=== PATIENT | female | born 1955 | race Caucasian/White ===

== ENCOUNTER → 2017-09-06 | Outpatient (CLI) | payer MEDICARE, OTHER ==
[~2017-09-06] MED LIST: ACET500 PO; ASPI81EC PO; BUME1 PO; FURO40 PO; GABA400 PO; LEVSOD25 PO; LIOT5 PO; METPHE20 PO; PARO20 PO; PAROXETINE PO; POTCHL20ER PO; SIMV40 PO; TRAZ100 PO
== END | disposition home or self-care (01) ==
LOC: LAB 18:49 → LAB SHORT 18:49
DX: B37.41 Candidal cystitis and urethritis (principal)
CPT/HCPCS: 87077; 87086; 87186

== ENCOUNTER → 2017-11-06 | Outpatient (CLI) | payer MEDICARE | LOC: LAB SHORT 19:07 → LAB EV 19:07 | DX: N39.0 Urinary tract infection, site not specified (principal) | CPT/HCPCS: 87077; 87086; 87186 ==

== ENCOUNTER → 2020-08-24 | Outpatient (CLI) | payer MEDICARE | LOC: LAB EV 19:07 → LAB SHORT 19:07 | DX: N39.0 Urinary tract infection, site not specified (principal) | CPT/HCPCS: 87086 ==

== ENCOUNTER → 2021-07-19 | Outpatient (CLI) | payer MEDICARE ==
[2021-07-19 15:13] LABS: BASOPHILS ABSOLUTE AUTO 0.03 K/mm3 (0.00-0.23); BASOPHILS PERCENT AUTO 1 % (0-2); EOSINOPHILS ABSOLUTE AUTO 0.13 K/mm3 (0.00-0.68); EOSINOPHILS PERCENT AUTO 2 % (0-6); Hematocrit 45.1 % (33.0-51.0); Hemoglobin 14.7 g/dL (11.5-16.0); IMMATURE GRAN ABSOLUTE AUTO 0.01 K/mm3 (0.00-0.10); IMMATURE GRAN PERCENT AUTO 0 % (0-1); LYMPHOCYTES ABSOLUTE AUTO 1.72 K/mm3 (0.84-5.20); LYMPHOCYTES PERCENT AUTO 26 % (21-46); MONOCYTES ABSOLUTE AUTO 0.46 K/mm3 (0.16-1.47); MONOCYTES PERCENT AUTO 7 % (4-13); Mean Corpuscular HGB 31.5 pg (26.0-34.0); Mean Corpuscular HGB Conc 32.6 g/dL (31.5-36.5); Mean Corpuscular Volume 97 fL (80-100); Mean Platelet Volume 9.4 fL (9.1-12.4); NEUTROPHILS ABSOLUTE AUTO 4.29 K/mm3 (1.96-9.15); NEUTROPHILS PERCENT AUTO 65 % (41-73); Platelet Count 163 K/mm3 (150-400); RDW Coefficient Variation 13.2 % (11.7-14.2); RDW Standard Deviation 46.8 fL (35.1-46.3); Red Blood Cell Count 4.67 M/mm3 (3.80-5.20); White Blood Cell Count 6.64 K/mm3 (4.00-11.30)
[2021-07-19 15:27] LABS: Alanine Aminotransfer (ALT/SGP 27 U/L (12-78); Albumin, Blood 3.4 g/dL (3.4-5.0); Albumin/Globulin Ratio 0.8 (0.8-1.8); Alk Phos 91 U/L (50-136); Anion Gap 4 mmol/L (6-16); Aspartate Aminotrans (AST/SGOT 17 U/L (12-37); Bilirubin, Total 0.6 mg/dL (0.1-1.0); Blood Urea Nitrogen 17 mg/dL (8-24); CO2, Blood 28 mmol/L (21-32); Calcium, Blood 9.5 mg/dL (8.5-10.1); Chloride, Blood 106 mmol/L (98-108); Creatinine, Blood 0.71 mg/dL (0.40-1.00); Glomerular Filtration Rate >60 (60-); Glucose, Blood 108 mg/dL (70-99); Potassium, Blood 4.1 mmol/L (3.5-5.5); Sodium, Blood 138 mmol/L (136-145); Total Protein, Blood 7.4 g/dL (6.4-8.2)
== END | disposition home or self-care (01) ==
LOC: LAB SHORT 13:42 → LAB 13:42
PROVIDERS: Hospitalist
DX: I10 Essential (primary) hypertension (principal)
CPT/HCPCS: 80053; 85025

== ENCOUNTER 2021-12-23 07:38 | Day surgery (SDC) | payer MEDICARE ==
[~2021-12-23] VITALS: Ht 160 cm; Wt 95.3 kg
[2021-12-23] MEDS ORDERED: NORT10 (08:10)
[2021-12-23] MEDS ORDERED: Bisoprolol Fumar5 MG (08:10)
[2021-12-23] MEDS ORDERED: LOSA25 (08:11)
[2021-12-23] MEDS ORDERED: FURO20 (08:11)
[2021-12-23] MEDS ORDERED: VENL25 (08:11)
== END 2021-12-23 09:18 | disposition home or self-care (01) ==
LOC: ORSCSDS 07:38
PROVIDERS: Surgery
PROC: 0DBK8ZX Excision of Ascending Colon, Via Natural or Artificial Opening Endoscopic, Diagnostic (ICD-10-PCS; principal; 2021-12-23 08:45)
PROC: 0DBP8ZX Excision of Rectum, Via Natural or Artificial Opening Endoscopic, Diagnostic (ICD-10-PCS; principal; 2021-12-23 08:45)
DX: Z12.11 Encounter for screening for malignant neoplasm of colon (principal); D12.2 Benign neoplasm of ascending colon; K62.1 Rectal polyp; K59.09 Other constipation; K52.9 Noninfective gastroenteritis and colitis, unspecified; J44.9 Chronic obstructive pulmonary disease, unspecified; I10 Essential (primary) hypertension; E78.5 Hyperlipidemia, unspecified; R00.0 Tachycardia, unspecified; F17.210 Nicotine dependence, cigarettes, uncomplicated; E66.9 Obesity, unspecified; Z68.37 Body mass index [BMI] 37.0-37.9, adult; Z79.82 Long term (current) use of aspirin; Z79.899 Other long term (current) drug therapy
CPT/HCPCS: 88305; J2704

== ENCOUNTER → 2022-06-30 | Outpatient (CLI) | payer MEDICARE ==
[~2022-06-30] MED LIST changes: +Bisoprolol Fumar5 MG; +FURO20; +LOSA25; +NORT10; +VENL25
[2022-06-30 14:28] LABS: Influenza B, PCR NEGATIVE (NEGATIVE); Resp Syncytial Virus, PCR NEGATIVE (NEGATIVE); SARS-Cov-2 (COVID-19) PCR, MMC NEGATIVE (NEGATIVE)
[2022-06-30 14:30] LABS: Influenza A, PCR POSITIVE (NEGATIVE)
== END | disposition home or self-care (01) ==
LOC: LAB SHORT 09:45 → LAB 09:45
PROVIDERS: Hospitalist
DX: Z20.822 Contact with and (suspected) exposure to COVID-19 (principal); R05.9 Cough, unspecified
CPT/HCPCS: 0241U

== ENCOUNTER → 2023-04-17 | Outpatient (CLI) | payer MEDICARE | LOC: LAB SHORT 18:31 → LAB 18:31 | DX: N30.01 Acute cystitis with hematuria (principal) | CPT/HCPCS: 87077; 87086; 87186 ==

== ENCOUNTER 2024-08-01 23:16 | Emergency (ER) | payer OTHER ==
[~2024-08-01] VITALS: Ht 160 cm; Wt 83.9 kg
[~2024-08-01 23:16] MED LIST changes: -PLAVIX75 MG PO; -ROSUVASTATIN CA20 MG PO
[2024-08-02 00:01] LABS: Source, Urine Clean Catch
[2024-08-02 00:22] LABS: Blood, Urine 5+ (Neg); Glucose Qualitative, Urine Neg (Neg); Ketones, Urine Neg (Neg); Leukocyte Esterase, Urine 3+ (Neg); Nitrite, Urine Pos (Neg); Protein, Urine 3+ (Neg); Specific Gravity, Urine 1.015 (1.003-1.022); Urobilinogen, Urine 2+ (Normal)
[2024-08-02 00:40] LABS: Appearance, Urine Turbid (Clear); Bilirubin, Urine 2+ (Neg); Color, Urine Yellow (P-Yellow)
[2024-08-02 00:44] LABS: Bacteria Many /hpf; Granular Casts 0-2 /lpf (0); Squamous Epithelial Cells Few /hpf (Few); White Blood Cells, Urine TNTC /hpf (0-5)
[2024-08-02 03:05] LABS: BASOPHILS ABSOLUTE AUTO 0.04 K/mm3 (0.00-0.23); BASOPHILS PERCENT AUTO 0 % (0-2); EOSINOPHILS ABSOLUTE AUTO 0.03 K/mm3 (0.00-0.68); EOSINOPHILS PERCENT AUTO 0 % (0-6); Hemoglobin 13.5 g/dL (11.5-16.0); IMMATURE GRAN ABSOLUTE AUTO 0.03 K/mm3 (0.00-0.10); IMMATURE GRAN PERCENT AUTO 0 % (0-1); LYMPHOCYTES ABSOLUTE AUTO 0.74 K/mm3 (0.84-5.20); LYMPHOCYTES PERCENT AUTO 7 % (21-46); MONOCYTES ABSOLUTE AUTO 1.01 K/mm3 (0.16-1.47); MONOCYTES PERCENT AUTO 9 % (4-13); Mean Corpuscular HGB 32.4 pg (26.0-34.0); Mean Corpuscular HGB Conc 33.8 g/dL (31.5-36.5); Mean Corpuscular Volume 96 fL (80-100); Mean Platelet Volume 9.5 fL (9.1-12.4); NEUTROPHILS ABSOLUTE AUTO 8.89 K/mm3 (1.96-9.15); NEUTROPHILS PERCENT AUTO 83 % (41-73); Platelet Count 111 K/mm3 (150-400); RDW Coefficient Variation 13.2 % (11.7-14.2); RDW Standard Deviation 46.8 fL (35.1-46.3); Red Blood Cell Count 4.17 M/mm3 (3.80-5.20); White Blood Cell Count 10.74 K/mm3 (4.00-11.30)
[2024-08-02 03:06] LABS: Albumin, Blood 3.2 g/dL (3.4-5.0); Albumin/Globulin Ratio 0.8 (0.8-1.8); Bilirubin, Total 0.7 mg/dL (0.1-1.0); Bun/Creatinine Ratio 19.1 (12.0-20.0); Calcium, Blood 9.1 mg/dL (8.5-10.1); Creatinine, Blood 1.31 mg/dL (0.40-1.00); Potassium, Blood 3.5 mmol/L (3.5-5.5); Total Protein, Blood 7.2 g/dL (6.4-8.2)
[2024-08-02] MEDS ORDERED: NS 1,000 ML IV SCH ×3 (03:40→07:15)
[2024-08-02] MEDS ORDERED: CefTRIAXone Sodium 1,000 MG in NS 50 ML IV ONE (03:40)
[2024-08-02] MEDS ORDERED: ROSUVASTATIN CA20 MG PO (13:01)
[2024-08-02] MEDS ORDERED: PLAVIX75 MG PO (13:01)
[2024-08-02] MEDS ORDERED: Gabapentin 300 MG Cap PO SCH (13:30)
[2024-08-02] MEDS ORDERED: Nicotine 21 MG PATCH TOP ONE (13:55)
[2024-08-02 16:30] VITALS: BP 135/67
== END 2024-08-02 16:42 | disposition short-term general hospital (02) ==
LOC: ER 23:16
PROVIDERS: Physician Assistant
DX: A41.9 Sepsis, unspecified organism (principal); N13.2 Hydronephrosis with renal and ureteral calculous obstruction; R65.21 Severe sepsis with septic shock; J96.01 Acute respiratory failure with hypoxia; R40.0 Somnolence; Z88.6 Allergy status to analgesic agent; Z88.8 Allergy status to other drugs, medicaments and biological substances; Z79.82 Long term (current) use of aspirin; Z79.899 Other long term (current) drug therapy
CPT/HCPCS: 36415; 74177; 80053; 81001; 83605; 85025; 87077; 87086; 87186; 96365-59; 99285-25; A9270; J0696; J7030; Q9967

== ENCOUNTER → 2024-08-01 | Outpatient (CLI) | payer OTHER ==
[~2024-08-01] MED LIST changes: -Bisoprolol Fumar5 MG; +Bisoprolol Fumar5 MG PO; -NORT10; +NORT10 PO; +PLAVIX75 MG PO; +ROSUVASTATIN CA20 MG PO; -VENL25; +VENL25 PO
== END ==
LOC: LAB 14:13 → LAB SHORT 14:13
DX: N39.0 Urinary tract infection, site not specified (principal)
CPT/HCPCS: 87077; 87086; 87186

== ENCOUNTER → 2024-08-13 | Outpatient (CLI) | payer OTHER ==
[~2024-08-13] MED LIST changes: +PLAVIX75 MG PO; +ROSUVASTATIN CA20 MG PO
[2024-08-13 13:21] LABS: BASOPHILS ABSOLUTE AUTO 0.04 K/mm3 (0.00-0.23); BASOPHILS PERCENT AUTO 0 % (0-2); EOSINOPHILS ABSOLUTE AUTO 0.27 K/mm3 (0.00-0.68); EOSINOPHILS PERCENT AUTO 3 % (0-6); Hematocrit 37.7 % (33.0-51.0); IMMATURE GRAN ABSOLUTE AUTO 0.05 K/mm3 (0.00-0.10); IMMATURE GRAN PERCENT AUTO 1 % (0-1); LYMPHOCYTES ABSOLUTE AUTO 1.37 K/mm3 (0.84-5.20); LYMPHOCYTES PERCENT AUTO 13 % (21-46); MONOCYTES ABSOLUTE AUTO 0.45 K/mm3 (0.16-1.47); MONOCYTES PERCENT AUTO 4 % (4-13); Mean Corpuscular HGB 31.4 pg (26.0-34.0); Mean Corpuscular HGB Conc 31.8 g/dL (31.5-36.5); Mean Corpuscular Volume 99 fL (80-100); Mean Platelet Volume 8.7 fL (9.1-12.4); NEUTROPHILS ABSOLUTE AUTO 8.22 K/mm3 (1.96-9.15); NEUTROPHILS PERCENT AUTO 79 % (41-73); Platelet Count 222 K/mm3 (150-400); RDW Coefficient Variation 13.3 % (11.7-14.2); RDW Standard Deviation 46.9 fL (35.1-46.3); Red Blood Cell Count 3.82 M/mm3 (3.80-5.20)
[2024-08-13 13:33] LABS: Albumin, Blood 3.8 g/dL (3.4-5.0); Bilirubin, Total 0.4 mg/dL (0.1-1.0); Bun/Creatinine Ratio 23.5 (12.0-20.0); Creatinine, Blood 1.19 mg/dL (0.40-1.00); Globulin, Blood 3.7 g/dL (2.2-4.0); Potassium, Blood 3.9 mmol/L (3.5-5.5); Total Protein, Blood 7.5 g/dL (6.4-8.2)
== END | disposition home or self-care (01) ==
LOC: LAB SHORT 13:15 → LAB 13:15
PROVIDERS: Physician Assistant
DX: M54.50 Low back pain, unspecified (principal); Z86.19 Personal history of other infectious and parasitic diseases; R82.81 Pyuria
CPT/HCPCS: 80053; 83605; 85025; 87040; 87086

== ENCOUNTER 2024-09-03 03:03 | Inpatient (IN) | payer OTHER ==
[~2024-09-03] VITALS: Ht 162.6 cm; Wt 88.5 kg
[~2024-09-03 03:03] MED LIST changes: +ASPI81CH PO; -ASPI81EC PO; +Bisoprolol Fuma10 MG PO; -Bisoprolol Fumar5 MG PO; -FURO20; +FURO20 PO; +GABA300 PO; -GABA400 PO; -LOSA25; +LOSA25 PO; -NORT10 PO; +NORT75 PO; -VENL25 PO; +VENL75ER PO
[2024-09-03] MEDS ORDERED: Ipratropium/Albuterol SulF 2.5-0.5MG/3 ML Amp INH ONE (03:20)
[2024-09-03] MEDS ORDERED: Ketorolac Tromethamine 15mg Vial IV ONE (03:25)
[2024-09-03 03:29] LABS: Source, Urine Clean Catch
[2024-09-03 03:30] LABS: Hematocrit 31.2 % (33.0-51.0); Hemoglobin 9.8 g/dL (11.5-16.0); Mean Corpuscular HGB 31.5 pg (26.0-34.0); Mean Corpuscular HGB Conc 31.4 g/dL (31.5-36.5); Mean Corpuscular Volume 100 fL (80-100); Mean Platelet Volume 9.1 fL (9.1-12.4); Platelet Count 118 K/mm3 (150-400); RDW Coefficient Variation 13.7 % (11.7-14.2); RDW Standard Deviation 50.1 fL (35.1-46.3); Red Blood Cell Count 3.11 M/mm3 (3.80-5.20); White Blood Cell Count 5.98 K/mm3 (4.00-11.30)
[2024-09-03 03:31] LABS: Base Excess Venous 2.1 mmol/L; Bicarbonate Venous 25.5 mmol/L (24.0-30.0); PCO2 Venous 43.9 mmHg (38-42)
[2024-09-03 03:32] LABS: Bilirubin, Urine Neg (Neg); Blood, Urine 5+ (Neg); Glucose Qualitative, Urine Neg (Neg); Ketones, Urine Neg (Neg); Leukocyte Esterase, Urine 3+ (Neg); Nitrite, Urine Neg (Neg); Protein, Urine 2+ (Neg); Urobilinogen, Urine NORM (Normal); pH, Urine 6.5 (5.0-8.0)
[2024-09-03 03:35] LABS: Appearance, Urine Hazy (Clear); Color, Urine Yellow (P-Yellow)
[2024-09-03] MEDS ORDERED: CefTRIAXone Sodium 1,000 MG in NS 100 ML IV ONE (03:40)
[2024-09-03] MEDS ORDERED: Azithromycin 250 MG Tab PO ONE (03:45)
[2024-09-03 03:49] LABS: Albumin, Blood 3.1 g/dL (3.4-5.0); Albumin/Globulin Ratio 0.8 (0.8-1.8); Bilirubin, Total 0.5 mg/dL (0.1-1.0); Calcium, Blood 8.7 mg/dL (8.5-10.1); Creatinine, Blood 0.77 mg/dL (0.40-1.00); Globulin, Blood 3.8 g/dL (2.2-4.0); Magnesium, Blood 1.7 mg/dL (1.6-2.4); Potassium, Blood 4.3 mmol/L (3.5-5.5); Total Protein, Blood 6.9 g/dL (6.4-8.2)
[2024-09-03 03:54] LABS: Bacteria Mod /hpf; Red Blood Cells, Urine TNTC /hpf (0-2); Squamous Epithelial Cells Not Seen /hpf (Few)
[2024-09-03 03:57] LABS: BAND PERCENT MAN 20 % (0-8); BASOPHILS PERCENT MAN 0 % (0-2); EOSINOPHILS PERCENT MAN 0 % (0-6); LYMPHOCYTES ABSOLUTE MAN 0.17 K/mm3 (0.84-5.20); LYMPHOCYTES PERCENT MAN 3 % (21-46); MONOCYTES ABSOLUTE MAN 0.05 K/mm3 (0.16-1.47); MONOCYTES PERCENT MAN 1 % (4-13); NEUTROPHILS ABSOLUTE MAN 5.74 K/mm3 (1.96-9.15); SEG NEUTROPHILS PERCENT MAN 76 % (41-73); TOTAL CELLS COUNTED 100
[2024-09-03] MEDS ORDERED: FLU VACC TS2024-25(6MOS UP)/PF 45 MCG/0.5 ML SYRINGE IM ONE (04:25)
[2024-09-03] MEDS ORDERED: Acetaminophen 325 MG TABLET PO PRN (04:25)
[2024-09-03 05:18] LABS: BASOPHILS ABSOLUTE AUTO 0.03 K/mm3 (0.00-0.23); BASOPHILS PERCENT AUTO 0 % (0-2); EOSINOPHILS ABSOLUTE AUTO 0.03 K/mm3 (0.00-0.68); EOSINOPHILS PERCENT AUTO 0 % (0-6); Hematocrit 27.5 % (33.0-51.0); Hemoglobin 8.6 g/dL (11.5-16.0); IMMATURE GRAN ABSOLUTE AUTO 0.03 K/mm3 (0.00-0.10); IMMATURE GRAN PERCENT AUTO 0 % (0-1); LYMPHOCYTES ABSOLUTE AUTO 0.28 K/mm3 (0.84-5.20); LYMPHOCYTES PERCENT AUTO 3 % (21-46); MONOCYTES ABSOLUTE AUTO 0.32 K/mm3 (0.16-1.47); MONOCYTES PERCENT AUTO 4 % (4-13); Mean Corpuscular HGB Conc 31.3 g/dL (31.5-36.5); Mean Corpuscular Volume 99 fL (80-100); NEUTROPHILS ABSOLUTE AUTO 8.52 K/mm3 (1.96-9.15); NEUTROPHILS PERCENT AUTO 93 % (41-73); NRBC ABSOLUTE 0.02 K/mm3 (0.00-0.02); NRBC Auto 0.2 /100 WBC (0.0-0.2); Platelet Count 110 K/mm3 (150-400); RDW Coefficient Variation 13.5 % (11.7-14.2); RDW Standard Deviation 49.1 fL (35.1-46.3); Red Blood Cell Count 2.77 M/mm3 (3.80-5.20); White Blood Cell Count 9.21 K/mm3 (4.00-11.30)
[2024-09-03 05:44] LABS: Albumin, Blood 2.8 g/dL (3.4-5.0); Albumin/Globulin Ratio 0.9 (0.8-1.8); Bilirubin, Total 0.4 mg/dL (0.1-1.0); Bun/Creatinine Ratio 21.6 (12.0-20.0); Calcium, Blood 8.5 mg/dL (8.5-10.1); Creatinine, Blood 0.79 mg/dL (0.40-1.00); Globulin, Blood 3.2 g/dL (2.2-4.0); Magnesium, Blood 1.7 mg/dL (1.6-2.4); Potassium, Blood 3.6 mmol/L (3.5-5.5)
[2024-09-03] MEDS ORDERED: Nicotine 14 MG PATCH TOP SCH (09:00)
[2024-09-03] MEDS ORDERED: Furosemide 40 MG Tab PO SCH (09:00)
[2024-09-03] MEDS ORDERED: Losartan Potassium 25 MG Tab PO SCH (09:00)
[2024-09-03] MEDS ORDERED: Metoprolol Succinate 50 MG TABCR PO SCH (09:00)
[2024-09-03] MEDS ORDERED: Aspirin 81 MG Chew PO SCH (09:00)
[2024-09-03] MEDS ORDERED: Atorvastatin 40 MG Tab PO SCH (09:00)
[2024-09-03] MEDS ORDERED: Clopidogrel Bisulfate 75 MG Tab PO SCH (09:00)
[2024-09-03] MEDS ORDERED: Lactobacil 2-S.Thermo-Bifido 1 1 Cap PO SCH (09:00)
[2024-09-03 09:01] LABS: Base Excess Venous 5.2 mmol/L; Bicarbonate Venous 28.4 mmol/L (24.0-30.0); PCO2 Venous 49.2 mmHg (38-42)
[2024-09-03] MEDS ORDERED: NS 500 ML IV ONE (10:10)
[2024-09-03 11:59] LABS: CORONAVIRUS COVID-19 AG Negative (NEGATIVE); INFLUENZA A AG Negative (NEGATIVE); INFLUENZA B AG Negative (NEGATIVE)
[2024-09-03 14:10] VITALS: BP 126/71
[2024-09-03 20:22] VITALS: BP 124/54
[2024-09-03] MEDS ORDERED: NS 250 ML IV PRN (20:50)
[2024-09-03] MEDS ORDERED: Venlafaxine HCl 25 MG Tab PO SCH (21:00)
[2024-09-03] MEDS ORDERED: Azithromycin 500 MG in NS 250 ML IV SCH (21:00)
[2024-09-03] MEDS ORDERED: Gabapentin 300 MG Cap PO SCH (21:00)
[2024-09-03] MEDS ORDERED: CefTRIAXone Sodium 1,000 MG in NS 100 ML IV SCH (21:00)
[2024-09-03] MEDS ORDERED: Nortriptyline HCl 10 MG Cap PO SCH (21:00)
[2024-09-04 02:40] VITALS: BP 133/68
--- NOTE | 2024-09-04 05:07 | NUR ---
SHIFT SUMMARY: PT AOX4 PLEASANT MOOD AND AFFECT. TOLERATING MEDICATION WELL AND ABLE TO MAKE NEEDS KNOWN. STATES THAT SHE IS HAVING A LOT OF RELIEFE WITH THE CATHETER IN PLACE AND THAT IT IS RELIEVING A LOT OF THE DISCOMFORT SHE WAS FEELING AT BASELINE. PT STATES SOME DISCOMFORT IN HER LEGS AND BACK THAT SITTING UP AT THE SIDE OF THE BED SEEMS TO RELIEVE. DENIEST DISCOMFORT OR ABNORMAL PAIN FROM BASELINE AT THIS TIME. NO ACUTE EVENTS OVERNIGHT. PT IN BED RESTING, BED IN LOWEST POSITION AND CALL LIGHT IN REACH. CONTIUNING CARE.
[2024-09-04 05:58] LABS: Hematocrit 28.9 % (33.0-51.0); Mean Corpuscular HGB 31.6 pg (26.0-34.0); Mean Corpuscular HGB Conc 31.1 g/dL (31.5-36.5); Mean Corpuscular Volume 101 fL (80-100); Mean Platelet Volume 9.4 fL (9.1-12.4); Platelet Count 132 K/mm3 (150-400); RDW Standard Deviation 51.8 fL (35.1-46.3); Red Blood Cell Count 2.85 M/mm3 (3.80-5.20); White Blood Cell Count 9.66 K/mm3 (4.00-11.30)
[2024-09-04 06:07] LABS: Bun/Creatinine Ratio 26.2 (12.0-20.0); Calcium, Blood 8.2 mg/dL (8.5-10.1); Creatinine, Blood 0.61 mg/dL (0.40-1.00); Potassium, Blood 3.8 mmol/L (3.5-5.5)
[2024-09-04 07:43] VITALS: BP 148/76
[2024-09-04] MEDS ORDERED: Enoxaparin 40 MG/0.4 ML SYR SC SCH (09:00)
--- NOTE | 2024-09-04 10:48 | NUR ---
PATIENT GAVE VERBAL PERMISSION TO WORK WITH STUDENT NURSE.
[2024-09-04 14:24] VITALS: BP 140/74
--- NOTE | 2024-09-04 16:51 | NUR ---
REVIEWED SHIFT ASSESSMENT CHARTED BY MIGUEL, STUDENT NURSE AND I AGREE WITH HER DOCUMENTATION FOR THIS PATIENT.
--- NOTE | 2024-09-04 17:04 | NUR ---
PATIENT A/OX4, UP WITH SBA. GOLDBERG TO GRAVITY WITH MARCELA/CLOUDY OUTPUT. PATIENT NOW ON RA MAINTAINING SATS >90%. SKIN INTACT. DENIES ANY PAIN OR DISCOMFORT. NO NEW CONCERNS THIS SHIFT. PATIENT PLEASANT AND COOPERATIVE AND ABLE TO MAKE NEEDS KNOWN.
[2024-09-04] MEDS ORDERED: Melatonin 5 MG Tablet PO SCH (21:00)
[2024-09-04] MEDS ORDERED: Gabapentin 300 MG Cap PO SCH (21:00)
[2024-09-04 21:58] VITALS: BP 151/76
[2024-09-05 04:31] VITALS: BP 161/78
--- NOTE | 2024-09-05 05:55 | NUR ---
SHIFT SUMMARY PT LYING IN BED RESTING. SPOUSE AT BEDSIDE THROUGH THE NIGHT. PT STATED SHE WOULD LIKE TO GO HOME WITH THE CATHETER IN PLACE, D/T CHRONIC RETENTION AND CURRENT KIDNEY STONE. EDUCATED PT AND SPOUSE ON IMPORTANCE OF KEEPING CATHETER INSERTION AREA CLEANED. PT AND SOUSE EXPRESSED UNDERSTANDING. APPROX 0530, PT HAD EXPRESSED CONCERNS OF PAIN WITH GOLDBERG. CATHETER APPEARED TO HAVE DISPLACED. CATHETER TUBING CLEANED, BALLOON DEFLATED, CATHETER ADVANCED, BALLOON REINFLATED, AND INSERTED CATHER BACK IN GOLDBERG SECUREMENT DEVICE. PT STATED SHE THOUGHT IT FELF BETTER. WILL CONTINUE TO MONITOR AND RELAY TO DAY SHIFT.
[2024-09-05] MEDS ORDERED: Gabapentin 300 MG Cap PO SCH (06:00)
[2024-09-05 06:11] LABS: Bun/Creatinine Ratio 16.3 (12.0-20.0); Calcium, Blood 8.5 mg/dL (8.5-10.1); Creatinine, Blood 0.55 mg/dL (0.40-1.00); Potassium, Blood 3.9 mmol/L (3.5-5.5)
[2024-09-05 08:01] VITALS: BP 157/93
[2024-09-05] MEDS ORDERED: PROAIR RESPICL90 MCG INH (11:54)
[2024-09-05] MEDS ORDERED: GABA300 PO (13:28)
[2024-09-05] MEDS ORDERED: CEPH500 PO (15:15)
[2024-09-05] MEDS ORDERED: TAMS.4ER PO (15:43)
--- NOTE | 2024-09-05 15:44 | NUR ---
PT DISCHARGED AT 1530 NO DISTRESS NOTED. PT DOING WELL ON RA AND INDEPENDENT IN ROOM. PT HAS SIGNIFICANT OTHER TO TRANSPORT HOME. PT HAD PACKET REVIEWED AND EDUCATIONAL MATERIAL SENT. NO DISTRESS NOTED AND PERSONAL BELONGINGS TAKEN WITH PT.
== END 2024-09-05 15:48 | disposition home or self-care (01) | DRG 871 ==
LOC: ER 03:03 → MEDS 04:31 → ERHOLD 04:31 → MEDS 13:58
PROVIDERS: Internal Medicine; Student in an Organized Health Care Education/Training Program; ADMIT Student in an Organized Health Care Education/Training Program
DX: A41.9 Sepsis, unspecified organism (principal); J18.9 Pneumonia, unspecified organism; J96.01 Acute respiratory failure with hypoxia; J96.02 Acute respiratory failure with hypercapnia; I50.32 Chronic diastolic (congestive) heart failure; E87.20 Acidosis, unspecified; N39.0 Urinary tract infection, site not specified; I47.19 Other supraventricular tachycardia; I08.1 Rheumatic disorders of both mitral and tricuspid valves; G47.00 Insomnia, unspecified; F17.210 Nicotine dependence, cigarettes, uncomplicated; R65.20 Severe sepsis without septic shock; R33.9 Retention of urine, unspecified; Z87.442 Personal history of urinary calculi; I27.20 Pulmonary hypertension, unspecified; I11.0 Hypertensive heart disease with heart failure; E78.5 Hyperlipidemia, unspecified; F41.9 Anxiety disorder, unspecified; Z98.1 Arthrodesis status; Z90.710 Acquired absence of both cervix and uterus; Z90.49 Acquired absence of other specified parts of digestive tract; Z90.89 Acquired absence of other organs; Z98.890 Other specified postprocedural states; Z88.8 Allergy status to other drugs, medicaments and biological substances; Z79.02 Long term (current) use of antithrombotics/antiplatelets; Z79.899 Other long term (current) drug therapy; Z99.81 Dependence on supplemental oxygen
CPT/HCPCS: 36415; 51702; 71045; 80048; 80053; 81001; 82803; 83605; 83735; 83880; 84145; 84484; 85025; 85027; 87070; 87077; 87086; 87186; 87205; 87428-QW; 93005; 93010; 94640; 94664; 94760; 94762; 96365-59; 96375-59; 99285-25; A9270; J0456; J0696; J1650; J1885; J7030; J7050

== ENCOUNTER → 2024-10-15 | Outpatient (CLI) | payer OTHER ==
[~2024-10-15] MED LIST changes: +CEPH500 PO; +PROAIR RESPICL90 MCG INH; +TAMS.4ER PO
[2024-10-15 11:04] LABS: BASOPHILS ABSOLUTE AUTO 0.02 K/mm3 (0.00-0.23); BASOPHILS PERCENT AUTO 0 % (0-2); EOSINOPHILS ABSOLUTE AUTO 0.17 K/mm3 (0.00-0.68); EOSINOPHILS PERCENT AUTO 4 % (0-6); Hematocrit 29.8 % (33.0-51.0); Hemoglobin 8.9 g/dL (11.5-16.0); IMMATURE GRAN ABSOLUTE AUTO 0.01 K/mm3 (0.00-0.10); IMMATURE GRAN PERCENT AUTO 0 % (0-1); LYMPHOCYTES ABSOLUTE AUTO 0.83 K/mm3 (0.84-5.20); LYMPHOCYTES PERCENT AUTO 17 % (21-46); MONOCYTES ABSOLUTE AUTO 0.46 K/mm3 (0.16-1.47); MONOCYTES PERCENT AUTO 10 % (4-13); Mean Corpuscular HGB 25.6 pg (26.0-34.0); Mean Corpuscular HGB Conc 29.9 g/dL (31.5-36.5); Mean Corpuscular Volume 86 fL (80-100); Mean Platelet Volume 9.5 fL (9.1-12.4); NEUTROPHILS ABSOLUTE AUTO 3.36 K/mm3 (1.96-9.15); NEUTROPHILS PERCENT AUTO 69 % (41-73); Platelet Count 172 K/mm3 (150-400); RDW Coefficient Variation 15.8 % (11.7-14.2); RDW Standard Deviation 49.6 fL (35.1-46.3); Red Blood Cell Count 3.47 M/mm3 (3.80-5.20); White Blood Cell Count 4.85 K/mm3 (4.00-11.30)
[2024-10-15 11:15] LABS: Albumin, Blood 3.1 g/dL (3.4-5.0); Albumin/Globulin Ratio 0.7 (0.8-1.8); Bilirubin, Total 0.4 mg/dL (0.1-1.0); Bun/Creatinine Ratio 17.5 (12.0-20.0); Calcium, Blood 8.9 mg/dL (8.5-10.1); Creatinine, Blood 1.26 mg/dL (0.40-1.00); Globulin, Blood 4.4 g/dL (2.2-4.0); Total Protein, Blood 7.5 g/dL (6.4-8.2)
== END ==
LOC: LAB 10:56 → LAB SHORT 10:56
PROVIDERS: Physician Assistant Medical
DX: R53.83 Other fatigue (principal)
CPT/HCPCS: 80053; 83735; 85025

== ENCOUNTER → 2025-02-08 | Outpatient (CLI) | payer OTHER | LOC: LAB SHORT 14:06 → LAB 14:06 | DX: N28.9 Disorder of kidney and ureter, unspecified (principal) | CPT/HCPCS: 87077; 87086; 87186 ==

== ENCOUNTER → 2025-02-08 | Outpatient (CLI) | payer OTHER ==
[2025-02-08 11:03] LABS: BASOPHILS ABSOLUTE AUTO 0.03 K/mm3 (0.00-0.23); BASOPHILS PERCENT AUTO 0 % (0-2); EOSINOPHILS ABSOLUTE AUTO 0.12 K/mm3 (0.00-0.68); EOSINOPHILS PERCENT AUTO 1 % (0-6); Hematocrit 40.1 % (33.0-51.0); Hemoglobin 13.2 g/dL (11.5-16.0); IMMATURE GRAN ABSOLUTE AUTO 0.05 K/mm3 (0.00-0.10); IMMATURE GRAN PERCENT AUTO 1 % (0-1); LYMPHOCYTES ABSOLUTE AUTO 0.60 K/mm3 (0.84-5.20); LYMPHOCYTES PERCENT AUTO 7 % (21-46); MONOCYTES ABSOLUTE AUTO 0.82 K/mm3 (0.16-1.47); MONOCYTES PERCENT AUTO 9 % (4-13); Mean Corpuscular HGB Conc 32.9 g/dL (31.5-36.5); Mean Corpuscular Volume 94 fL (80-100); NEUTROPHILS ABSOLUTE AUTO 7.38 K/mm3 (1.96-9.15); NEUTROPHILS PERCENT AUTO 82 % (41-73); NRBC ABSOLUTE 0.00 K/mm3 (0.00-0.02); NRBC Auto 0.0 /100 WBC (0.0-0.2); Platelet Count 136 K/mm3 (150-400); RDW Coefficient Variation 16.5 % (11.7-14.2); RDW Standard Deviation 56.4 fL (35.1-46.3)
[2025-02-08 11:10] LABS: Alanine Aminotransfer (ALT/SGP 44.0 U/L (12-78); Albumin, Blood 3.0 g/dL (3.4-5.0); Albumin/Globulin Ratio 0.7 (0.8-1.8); Anion Gap 16.0 mmol/L (3-11); Aspartate Aminotrans (AST/SGOT 36.0 U/L (12-37); Bilirubin, Total 0.5 mg/dL (0.1-1.0); Blood Urea Nitrogen 22.0 mg/dL (8-24); CO2, Blood 21.0 mmol/L (21-32); Calcium, Blood 9.1 mg/dL (8.5-10.1); Chloride, Blood 103.0 mmol/L (98-108); Creatinine, Blood 1.09 mg/dL (0.40-1.00); Globulin, Blood 4.6 g/dL (2.2-4.0); Glucose, Blood 120.0 mg/dL (70-99); Magnesium, Blood 1.7 mg/dL (1.6-2.4); Phosphorus, Blood 3.3 mg/dL (2.5-4.9); Potassium, Blood 4.5 mmol/L (3.5-5.5); Sodium, Blood 135.0 mmol/L (136-145); Total Protein, Blood 7.6 g/dL (6.4-8.2)
== END | disposition home or self-care (01) ==
LOC: LAB SHORT 10:55 → LAB 10:55
PROVIDERS: Emergency Medicine
DX: R10.9 Unspecified abdominal pain (principal)
CPT/HCPCS: 80053; 83735; 84100; 85025

== ENCOUNTER → 2025-02-27 | Outpatient (CLI) | payer OTHER ==
[2025-02-27 19:22] LABS: Microalbumin, Urine Quant. 31.9 mg/L (0.000-20.000); Protein, Urine Quantitative 13.8 mg/dL (0.0-11.9)
== END | disposition home or self-care (01) ==
LOC: LAB SHORT 07:00 → LAB 07:00 → LAB FUT 02-19 15:05
PROVIDERS: Internal Medicine Nephrology
DX: N18.30 Chronic kidney disease, stage 3 unspecified (principal); D63.1 Anemia in chronic kidney disease; N25.81 Secondary hyperparathyroidism of renal origin; E55.9 Vitamin D deficiency, unspecified; E78.00 Pure hypercholesterolemia, unspecified; R76.9 Abnormal immunological finding in serum, unspecified; R94.5 Abnormal results of liver function studies; R94.6 Abnormal results of thyroid function studies; D51.8 Other vitamin B12 deficiency anemias; D52.8 Other folate deficiency anemias; D50.9 Iron deficiency anemia, unspecified
CPT/HCPCS: 81050; 82043; 82570; 84156

== ENCOUNTER 2025-07-04 09:44 | Inpatient (IN) | payer OTHER ==
[~2025-07-04] VITALS: Ht 160 cm; Wt 88.2 kg
[2025-07-04] MEDS ORDERED: NS 1,000 ML IV SCH ×3 (11:00→15:00)
[2025-07-04 11:39] LABS: BASOPHILS ABSOLUTE AUTO 0.03 K/mm3 (0.00-0.23); BASOPHILS PERCENT AUTO 0 % (0-2); EOSINOPHILS ABSOLUTE AUTO 0.01 K/mm3 (0.00-0.68); EOSINOPHILS PERCENT AUTO 0 % (0-6); Hematocrit 38.1 % (33.0-51.0); Hemoglobin 12.7 g/dL (11.5-16.0); IMMATURE GRAN ABSOLUTE AUTO 0.05 K/mm3 (0.00-0.10); IMMATURE GRAN PERCENT AUTO 0 % (0-1); LYMPHOCYTES ABSOLUTE AUTO 0.56 K/mm3 (0.84-5.20); LYMPHOCYTES PERCENT AUTO 4 % (21-46); MONOCYTES ABSOLUTE AUTO 0.70 K/mm3 (0.16-1.47); MONOCYTES PERCENT AUTO 6 % (4-13); Mean Corpuscular HGB Conc 33.3 g/dL (31.5-36.5); Mean Corpuscular Volume 97 fL (80-100); NEUTROPHILS ABSOLUTE AUTO 11.26 K/mm3 (1.96-9.15); NEUTROPHILS PERCENT AUTO 89 % (41-73); NRBC ABSOLUTE 0.00 K/mm3 (0.00-0.02); NRBC Auto 0.0 /100 WBC (0.0-0.2); Platelet Count 133 K/mm3 (150-400); RDW Coefficient Variation 13.3 % (11.7-14.2); RDW Standard Deviation 48.1 fL (35.1-46.3)
[2025-07-04 12:26] LABS: Alanine Aminotransfer (ALT/SGP 23.0 U/L (12-78); Albumin, Blood 3.0 g/dL (3.4-5.0); Albumin/Globulin Ratio 0.7 (0.8-1.8); Anion Gap 10.0 mmol/L (3-11); Aspartate Aminotrans (AST/SGOT 21.0 U/L (12-37); Bilirubin, Total 0.6 mg/dL (0.1-1.0); Blood Urea Nitrogen 31.0 mg/dL (8-24); CO2, Blood 22.0 mmol/L (21-32); Calcium, Blood 8.8 mg/dL (8.5-10.1); Chloride, Blood 101.0 mmol/L (98-108); Creatinine, Blood 1.17 mg/dL (0.40-1.00); Globulin, Blood 4.2 g/dL (2.2-4.0); Glucose, Blood 125.0 mg/dL (70-99); Magnesium, Blood 2.2 mg/dL (1.6-2.4); Phosphorus, Blood 1.4 mg/dL (2.5-4.9); Potassium, Blood 4.3 mmol/L (3.5-5.5); Sodium, Blood 129.0 mmol/L (136-145); Total Protein, Blood 7.2 g/dL (6.4-8.2)
[2025-07-04 12:56] LABS: Source, Urine Clean Catch
[2025-07-04 13:01] LABS: Color, Urine Yellow (P-Yellow); Glucose Qualitative, Urine Neg (Neg); Ketones, Urine Neg (Neg); Leukocyte Esterase, Urine 3+ (Neg); Protein, Urine 3+ (Neg); Specific Gravity, Urine 1.010 (1.003-1.022); Urobilinogen, Urine NORM (Normal)
[2025-07-04 13:10] LABS: Bilirubin, Urine 1+ (Neg)
[2025-07-04 13:12] LABS: Red Blood Cells, Urine 0-2 /hpf (0-2)
[2025-07-04] MEDS ORDERED: CefTRIAXone Sodium 1,000 MG in NS 100 ML IV ONE (13:35)
[2025-07-04] MEDS ORDERED: FLU VACC TS2025(65UP)/MF59C/PF 45 MCG/0.5 ML SYRINGE IM SCH (13:45)
--- NOTE | 2025-07-04 18:26 | NUR ---
ASSUMPTION OF CARE AT APPROX 1700 A/O X4, PLEASANT AND COOPERATIVE WITH CARE, ABLE TO COMMUNICATE NEEDS, USES CALL LIGHT APPROPRIATELY, FELL AT HOME TODAY AND HIT HEAD ON THE WALL, PT REPORTS FEELING DIZZY AND WEAK THIS MORNING AFTER SEVERAL DAYS OF N/V/D, DENIES DIZZINESS AT THIS TIME, LIFE PARTNER OJ AT BEDSIDE. SPO2 >92% ON RA, RECENTLY QUIT SMOKING. SINUS TACH, HR 100'S, DENIES CHEST PAIN OR PRESSURE. GOLDBERG CATH W/THERMOMETER PATENT AND DRAINING TO GRAVITY, PT DENIES PAIN OR BURNING AT THE SITE. ORIENTED TO CALL DON'T FALL AND CALL LIGHT.
[2025-07-04 21:49] VITALS: BP 135/59
[2025-07-05] VITALS (8 sets, daily range): BP systolic 104–182; BP diastolic 56–90
[2025-07-05 05:02] LABS: Hematocrit 34.0 % (33.0-51.0); Hemoglobin 11.1 g/dL (11.5-16.0); Mean Corpuscular HGB Conc 32.6 g/dL (31.5-36.5); Mean Corpuscular Volume 97 fL (80-100); NRBC ABSOLUTE 0.00 K/mm3 (0.00-0.02); NRBC Auto 0.0 /100 WBC (0.0-0.2); Platelet Count 104 K/mm3 (150-400); RDW Coefficient Variation 13.6 % (11.7-14.2); RDW Standard Deviation 49.1 fL (35.1-46.3)
[2025-07-05 05:40] LABS: Anion Gap 10.0 mmol/L (3-11); Blood Urea Nitrogen 19.0 mg/dL (8-24); CO2, Blood 20.0 mmol/L (21-32); Calcium, Blood 7.9 mg/dL (8.5-10.1); Chloride, Blood 108.0 mmol/L (98-108); Creatinine, Blood 0.76 mg/dL (0.40-1.00); Glucose, Blood 126.0 mg/dL (70-99); Potassium, Blood 3.7 mmol/L (3.5-5.5); Sodium, Blood 134.0 mmol/L (136-145)
--- NOTE | 2025-07-05 06:30 | NUR ---
SHIFT SUMMARY/ASSUMPTION OF CARE ASSUMED CARE OF PT AT APPROXIMATELY 1900. PTS LIFE PARTNER AT BEDSIDE. PT FEBRILE 102.7 MD COKER NOTIFIED AND ORDER FOR TYLENOL PLACED. FEVER IMPROVED. PT STILL WITH WATERY DIARRHEA. BLOOD CULTURES POSITIVE FOR GRAM NEGATIVE BACCILI. MD COKER NOTIFIED. AOX4. SPO2 >94% ON RA. NO C/O SOB. NO C/O CHEST PAIN OR PRESSURE. PT ABLE TO MAKE ALL NEEDS KNOWN. CALL LIGHT WITHIN REACH AND PT CALLS APPROPRIATELY FOR ASSISTANCE WHEN NEEDED. PT TRANSFERRED WELL TO [facility] [place] WITH 1 PERSON ASSISTANCE WITH LINES. BED IN LOWEST AND LOCKED POSITION.
[2025-07-05] MEDS ORDERED: GABA300 PO (07:45)
[2025-07-05] MEDS ORDERED: Enoxaparin 40 MG/0.4 ML SYR SC SCH (09:00)
[2025-07-05] MEDS ORDERED: CefTRIAXone Sodium 1,000 MG in NS 100 ML IV SCH (09:00)
[2025-07-05] MEDS ORDERED: Albuterol HFA200 ACT/6.7 GM INH INH PRN (09:35)
--- NOTE | 2025-07-05 12:42 | NUR ---
CALLED DR GORDON, RE [facility] 5 BEAT RUN, PT ASYMPTOMATIC. ORDERS FOR MAG LEVEL, OKAY TO ADD TO AM LABS IS CAN. DONE
[2025-07-05] MEDS ORDERED: HydrALAZINE HCl 20 MG / ML 1ML Vial IV PRN (15:45)
--- NOTE | 2025-07-05 15:48 | NUR ---
SPOKE TO DR GARCIA TEMP 101.9, ALSO HTN. PLACED ICE UNDER NECK AND ARMS OVER AN HOUR AGO. MISSED LAST NITE DOSES. TO ADJUST MEDS. PEND ORDERS. CONTINUE WITH ICE AT NECK AND UNDER ARMS.
--- NOTE | 2025-07-05 16:15 | NUR ---
CALLLED DR MARTINO RE BP, AND TEMP. ORDERS FOR BP MEDS CHANGE. CONTINUE ICE.
--- NOTE | 2025-07-05 17:10 | NUR ---
PT QUITE PLEASANT AND COOP TODAY. S/O IN ROOM IN AND OUT. B/P MEDS ADJUSTED TODAY ALONG WITH GABAPENTIN. TEMP CONTINUES. TYLENOL AND ICE TO TREAT. DID DISCUSS WITH DR GORDON. FLUIDS D/C THIS AM. PT STATES PAIN UP JUST A LITTLE THIS AFTERNOON. MED WITH TYLENOL. NO OTHER CONCERNS NOTED TODAY. NO OTHER CONCERNS NOTED. BED IN LOW POSITION, CALL LITE IN REACH, CALLS APPROP
[2025-07-06 03:55] VITALS: BP 155/85
--- NOTE | 2025-07-06 06:03 | NUR ---
SHIFT SUMMARY/ASSUMPTION OF CARE ASSUMED CARE OF PT AT APPROXIMATELY 1900. PTS LIFE PARTNER AND SON AT BEDSIDE. PT WITH LOW FEVER THIS SHIFT <100F. TYLENOL GIVEN TO MAINTAIN LOWER TEMP. PT HAD ONE DIAPHORETIC EPISODE THIS SHIFT. LINENS AND GOWN CHANGED. PT REPORTED FEELING SUBSTANTIALLY BETTER OVERALL WHEN SHE WOKE FOR MORNING VITALS.PT RESTING COMFORTABLY IN BED. VSS. AOX4. ABLE TO MAKE ALL NEEDS KNOWN. CALL LIGHT WITHIN REACH AND PT CALLS APPROPRIATELY FOR ASSISTANCE WHEN NEEDED. BED IN LOWEST AND LOCKED POSITION.
[2025-07-06 07:41] VITALS: BP 159/78
--- NOTE | 2025-07-06 09:35 | NUR ---
AM NOTE: PATIENT ALERT AND ORIENTED X4. DENIES PAIN THIS MORNING. UP WITH SBA. MOVING ALL EXTREMITIES. ON ROOM AIR SATING ABOVE 95%. LUNG SOUNDS CLEAR. DENIES SOB/COUGH. TELE SHOWING SR WITH HR 80'S. DENIES CHEST PAIN/PRESSURE/PALPITATIONS. SCD'S IN PLACE. SC LOVENOX GIVEN THIS AM AND IV ABX INFUSED. TRACE BLE EDEMA NOTED. PPP. BOWEL TONES PRESENT. REPORTED TO HAVE DIARRHEA FROM PRIOR SHIFT. TOLERATING PO DIET WITHOUT ISSUES. APPEATITE RETURNING. ATTENDS IN PLACE. GOLDBERG CATH DRAINING YELLOW URINE TO GRAVITY. CATH CARE COMPLETED THIS AM WITH MORNING ROUNDS. PLAN FOR RENAL ULTRASOUND TODAY. SPOUSE OJ AT BEDSIDE AND UPDATED ON PLAN OF CARE. DR. GAUTAM TO BEDSIDE THIS MORNING AND NICOTINE PATCH SWITCHED TO 14MG. NICOTINE PATCH TO LEFT SHOULDER. CALL LIGHT IN REACH. DENIES NEEDS AT THIS TIME.
[2025-07-06 11:06] VITALS: BP 128/62
[2025-07-06 15:29] VITALS: BP 155/76
--- NOTE | 2025-07-06 15:36 | NUR ---
RENAL ULTRASOUND BEING DONE AT THIS TIME
--- NOTE | 2025-07-06 18:22 | NUR ---
NO ACUTE CHANGES. PATIENT REMAINS ALERT AND ORIENTED. ON ROOM AIR. SR/ST WITH HR 90-100'S. GOLDBERG CATH CONTINUES TO DRAIN CLEAR/YELLOW URINE. SPOUSE OJ AT BEDSIDE THROUGHOUT SHIFT. IV ABX INFUSED. TMAX 100.6, MEDICATED THROUGHOUT SHIFT WITH TYLENOL. UP TO RECLINER FOR DINNER. BOWEL MOVEMENT X1. CALL LIGHT IN REACH. DENIES CHEST NEEDS AT THIS TIME.
[2025-07-06 20:10] VITALS: BP 179/91
[2025-07-07] VITALS: BP 154/82
[2025-07-07 03:26] VITALS: BP 159/83
[2025-07-07 04:11] LABS: BASOPHILS ABSOLUTE AUTO 0.03 K/mm3 (0.00-0.23); BASOPHILS PERCENT AUTO 1 % (0-2); EOSINOPHILS ABSOLUTE AUTO 0.27 K/mm3 (0.00-0.68); EOSINOPHILS PERCENT AUTO 4 % (0-6); Hematocrit 36.6 % (33.0-51.0); Hemoglobin 11.8 g/dL (11.5-16.0); IMMATURE GRAN ABSOLUTE AUTO 0.02 K/mm3 (0.00-0.10); IMMATURE GRAN PERCENT AUTO 0 % (0-1); LYMPHOCYTES ABSOLUTE AUTO 0.73 K/mm3 (0.84-5.20); LYMPHOCYTES PERCENT AUTO 12 % (21-46); MONOCYTES ABSOLUTE AUTO 0.49 K/mm3 (0.16-1.47); MONOCYTES PERCENT AUTO 8 % (4-13); Mean Corpuscular HGB Conc 32.2 g/dL (31.5-36.5); Mean Corpuscular Volume 98 fL (80-100); NEUTROPHILS ABSOLUTE AUTO 4.77 K/mm3 (1.96-9.15); NEUTROPHILS PERCENT AUTO 76 % (41-73); NRBC ABSOLUTE 0.00 K/mm3 (0.00-0.02); NRBC Auto 0.0 /100 WBC (0.0-0.2); Platelet Count 147 K/mm3 (150-400); RDW Coefficient Variation 14.0 % (11.7-14.2); RDW Standard Deviation 50.7 fL (35.1-46.3)
[2025-07-07 04:34] LABS: Alanine Aminotransfer (ALT/SGP 41.0 U/L (12-78); Albumin, Blood 2.2 g/dL (3.4-5.0); Albumin/Globulin Ratio 0.5 (0.8-1.8); Anion Gap 8.0 mmol/L (3-11); Aspartate Aminotrans (AST/SGOT 31.0 U/L (12-37); Bilirubin, Total 0.2 mg/dL (0.1-1.0); Blood Urea Nitrogen 13.0 mg/dL (8-24); CO2, Blood 23.0 mmol/L (21-32); Calcium, Blood 8.4 mg/dL (8.5-10.1); Chloride, Blood 108.0 mmol/L (98-108); Creatinine, Blood 0.72 mg/dL (0.40-1.00); Globulin, Blood 4.1 g/dL (2.2-4.0); Glucose, Blood 140.0 mg/dL (70-99); Magnesium, Blood 1.7 mg/dL (1.6-2.4); Potassium, Blood 3.4 mmol/L (3.5-5.5); Sodium, Blood 136.0 mmol/L (136-145); Total Protein, Blood 6.3 g/dL (6.4-8.2)
--- NOTE | 2025-07-07 05:28 | NUR ---
ASSUMED CARE OF PT AT 1900. PT AXOX4 AND ABLE TO USE CALL LIGHT APPROPRIATELY. PT AFEBRILE THROUGHOUT THE NIGHT. GOLDBERG CATHETER IN PLACE AND DRAINING TO GRAVITY. BP ELEVATED AT THE START OF THE SHIFT BUT NIGHT TIME MEDS ADMINISTERED AND ELEVATED BP RESOLVED. ALL OTHER VSS. BED IN LOWEST POSITION AND CALL LIGHT WITHIN REACH.
[2025-07-07] MEDS ORDERED: Mag Sulfate 1 GM/D5% 100ML 100 ML IV STA (05:30)
[2025-07-07 07:26] VITALS: BP 158/86
--- NOTE | 2025-07-07 10:03 | NUR ---
AM NOTE: PATIENT ALERT AND ORIENTED X4. UP TO RECLINER THIS MORNING. MOVING ALL EXTREMITIES. COMPLAINS OF GENERALIZED SORENESS FROM FALL AT HOME. PERRLA. SPOUSE OJ TO BEDSIDE THIS MORNING AND UPDATED ON PLAN OF CARE. ON ROOM AIR SATING ABOVE 95%. LUNGS REMAIN CLEAR. EVEN AND UNLABORED RESPIRATIONS. TELE READING SR/ST WITH HR 90-100'S. DENIES CHEST PAIN/PRESSURE/PALPITATIONS. TRACE EDEMA TO BLE. IV ABX INFUSED THIS MORNING. BOWEL TONES PRESENT. DENIES ABDOMINAL PAIN/NAUSEA. TOLERATING PO DIET WITHOUT ISSUES. DENTURES IN PLACE. GOLDBERG CATH DRAINING CLEAR/YELLOW URINE. ATTENDS IN PLACE. SKIN PALE WITH SCATTERED BRUISING FROM FALL AT HOME AND SCAB TO LEFT HAND. CALL LIGHT IN REACH. DENIES NEEDS AT THIS TIME. DR. GAUTAM TO BEDSIDE THIS MORNING AND SUPERVISOR SLEEPING BAG DEPARTMENT ROUNDED WITH . RENAL ULTRASOUND RESULTS AND BLOOD CULTURE RESULTS DISCUSSED WITH PATIENT WELL MEDICAL STATUS NO TELE AND CONTINUED IV ANTIBIOTICS.
[2025-07-07 11:00] VITALS: BP 153/76
[2025-07-07 16:45] VITALS: BP 157/72
--- NOTE | 2025-07-07 18:19 | NUR ---
SHIFT SUMMARY: NO ACUTE CHANGES. GOLDBERG REMOVED THIS SHIFT WITH NO ISSUES. PATIENT ABLE TO VOID IND AFTER GOLDBERG REMOVAL. IV ABX INFUSED. MEDICAL STATUS NO TELE. VITAL SIGNS STABLE. ON ROOM AIR. SPOUSE AT BEDSIDE. MOVING IND IN BED AND UP TO RECLINER FOR MEALS. CALL LIGHT IN REACH. DENIES NEEDS AT THIS TIME.
[2025-07-07 20:34] VITALS: BP 166/75
[2025-07-08 02:01] VITALS: BP 161/91
--- NOTE | 2025-07-08 06:17 | NUR ---
SHIFT SUMMARY PT ALERT ORIENTED X 4 ABLE TO VERBALIZE NEEDS AND CALLS APPROPRITALY. REMAINS ON ROCEPHIN QDAY FOR UTI. SHE WILL STAY HERE TO GET HER IV ANTIBIOTICS. SHES VOIDING WELL AFTER F/C REMOVAL. GETTING UP AD DU IN HER ROOM AND AMBULATES TO THE BATHROOM. VSS ON RA SATTING 95-100%. BP IS SLIGHTLY ELEVATED AT 161/91. C/O HEADACHE MEDICATED WITH TYLENOL WITH GOOD PAIN RELIEF. SHE TOLATES A CC DIET. TAKES MEDS WHOLE. CALL LIGHT IN REACH BED IN LOW POSITION. RESTING IN BED AT THIS TIME
[2025-07-08 08:29] VITALS: BP 157/77
[2025-07-08 11:55] VITALS: BP 163/95
[2025-07-08 15:14] VITALS: BP 152/112
--- NOTE | 2025-07-08 18:22 | NUR ---
SHIFT SUMMARY SBP WAS MILDLY ELEVATED, NO PRN GIVEN PROVIDER AWARE.HR 80-90'S NSR. O2 SATS >95% ON ROOM AIR. MED STATUS WITH NO TELE. INDEPENDENT IN ROOM USES URINAL IN THE BATHROOM. PROVIDER PUT IN ORDER TO RESUME LASIX PO TOMORROW. PLAN FOR IV ABX TO CONTINUE UNTIL MONDAY. PATIENT DENIES CHEST PAIN/PRESSURE/SOB. PATIENT IS RESTING IN BED IN LOWEST POSITION WITH CALL LIGHT IN REACH.
[2025-07-08 20:59] VITALS: BP 164/88
[2025-07-09 02:20] VITALS: BP 139/86
[2025-07-09 04:02] LABS: Hematocrit 37.9 % (33.0-51.0); Hemoglobin 12.4 g/dL (11.5-16.0); Mean Corpuscular HGB Conc 32.7 g/dL (31.5-36.5); Mean Corpuscular Volume 99 fL (80-100); NRBC ABSOLUTE 0.00 K/mm3 (0.00-0.02); NRBC Auto 0.0 /100 WBC (0.0-0.2); Platelet Count 180 K/mm3 (150-400); RDW Coefficient Variation 13.9 % (11.7-14.2); RDW Standard Deviation 50.9 fL (35.1-46.3)
[2025-07-09 04:23] LABS: Albumin, Blood 2.6 g/dL (3.4-5.0); Anion Gap 7 mmol/L (3-11); Blood Urea Nitrogen 14 mg/dL (8-24); CO2, Blood 28 mmol/L (21-32); Calcium, Blood 8.8 mg/dL (8.5-10.1); Chloride, Blood 106 mmol/L (98-108); Creatinine, Blood 0.74 mg/dL (0.40-1.00); Glucose, Blood 113 mg/dL (70-99); Magnesium, Blood 2.0 mg/dL (1.6-2.4); Phosphorus, Blood 3.7 mg/dL (2.5-4.9); Potassium, Blood 4.5 mmol/L (3.5-5.5); Sodium, Blood 136 mmol/L (136-145)
--- NOTE | 2025-07-09 06:57 | NUR ---
SHIFT SUMMARY: PT IS A&OX4, PLEASANT AND COOPERATIVE WITH CARE. HYPERTENSIVE, SBP IN THE 160'S, ON RA. C/O A ROD THIS SHIFT, MEDICATED PER EMR WITH TYLENOL. SHE ALSO HAD A COUPLE CUPS OF COFFEE TO TRY TO HELP. TOLERATING A CONSISTENT CARB DIET. UP AD DU IN ROOM/BR. HER PARTNER OJ AT BEDSIDE T/O THE NIGHT ATTENTIVE TO PT. VOIDING ADEQUATE AMOUNTS OF YELLOW COLORED URINE. NO BM THIS SHIFT. BED IN LOWEST POSITION, CALL LIGHT WITHIN REACH. CALLS APPROPRIATELY AND IS ABLE TO ADVOCATE NEEDS EFFECTIVELY.
[2025-07-09 07:24] VITALS: BP 139/70
[2025-07-09 11:43] VITALS: BP 124/79
[2025-07-09 15:29] VITALS: BP 145/80
--- NOTE | 2025-07-09 18:09 | NUR ---
SHIFT SUMMARY PATIENT A0 X 4 T/O SHIFT. SBP HAVE BEEN 120'S-140'S. HR HAS BEEN 70'S-90'S. O2 SATS HAVE BEEN >95% ON ROOM AIR. PATIENT IS INDEPENDNT IN ROOM AND USES URINAL IN BATHROOM. SHE IS MED STATUS WITH NO TELE. PLAN FOR IV ANTIBIOTICS TO BE SWITCHED TO PO AND POSSIBLE DISCHARGE ON MONDAY. RENAL US RESULTS IN CHART. PATIENT DENIES CHEST PAIN PRESSURE/SOB AT THIS TIME. PATIENT RESTING COMFORTABLY IN BED IN LOWEST POSITION WITH CALL LIGHT IN REACH.
[2025-07-09 20:08] VITALS: BP 135/72
--- NOTE | 2025-07-09 21:34 | NUR ---
CALLED ERLIN AND GAVE REPORT TO HER. PT IS TRANSFERRING UP TO THE MEDICAL FLOOR ROOM 303. SHES TRANSFERRED WITH ALL BELONGINGS.
[2025-07-09 21:47] VITALS: BP 150/68
--- NOTE | 2025-07-10 04:26 | NUR ---
SHIFT SUMMARY: PT IS AOX4 AND IND IN ROOM. PT WAS A PCU TRANSFER THIS SHIFT. PT HAS FAMILY AT BEDSIDE THAT STAYED THE NIGHT. NO ACUTE CHANGES THIS SHIFT.
[2025-07-10 04:42] VITALS: BP 161/85
[2025-07-10] MEDS ORDERED: NS 250 ML IV PRN (07:55)
[2025-07-10 08:18] VITALS: BP 145/78
[2025-07-10] MEDS ORDERED: CEPH500 PO (11:07)
--- NOTE | 2025-07-10 11:49 | NUR ---
DISCHARGE PT DISCHARGED VIA W/C ESCORTED BY RN. REVIEWED DISCHARGE INFORMATION. NO QUESTIONS AT THIS TIME. RX FAXED TO [facility] PER REQUEST.
== END 2025-07-10 12:40 | disposition home or self-care (01) | DRG 872 ==
LOC: ER 09:44 → PCU 13:43 → MEDS 13:43 → PCU 17:05 → MEDS 07-09 22:00 → ENPENDDIS 07-10 10:41 → MEDS 07-10 12:40
PROVIDERS: Internal Medicine; Student in an Organized Health Care Education/Training Program; ADMIT Internal Medicine
DX: A41.9 Sepsis, unspecified organism (principal); I50.32 Chronic diastolic (congestive) heart failure; N39.0 Urinary tract infection, site not specified; E87.1 Hypo-osmolality and hyponatremia; M79.7 Fibromyalgia; R65.20 Severe sepsis without septic shock; F41.9 Anxiety disorder, unspecified; R00.0 Tachycardia, unspecified; E86.0 Dehydration; R73.9 Hyperglycemia, unspecified; D69.6 Thrombocytopenia, unspecified; E83.39 Other disorders of phosphorus metabolism; G89.29 Other chronic pain; F32.A Depression, unspecified; F17.210 Nicotine dependence, cigarettes, uncomplicated; Z96.0 Presence of urogenital implants; Z98.1 Arthrodesis status; Z87.442 Personal history of urinary calculi; Z90.49 Acquired absence of other specified parts of digestive tract; Z90.89 Acquired absence of other organs; Z98.890 Other specified postprocedural states; Z79.82 Long term (current) use of aspirin; Z79.02 Long term (current) use of antithrombotics/antiplatelets; Z79.899 Other long term (current) drug therapy; Z88.8 Allergy status to other drugs, medicaments and biological substances
CPT/HCPCS: 36415; 51702; 71045; 76770; 80048; 80053; 80069; 81001; 83605; 83735; 84100; 85025; 85027; 87040; 87077; 87086; 87186; 93005; 93010; 94762; 96360-59; 99284-25; A9270; J0696; J1650; J3475; J7030; J7050; J7060